=== PATIENT | female | born 1950 | race Caucasian/White ===

== ENCOUNTER 2019-06-02 15:11 | Emergency (ER) | payer MEDICARE ==
--- NOTE | 2019-06-02 16:07 | EDM.PDOC ---
ED HPI GENERAL MEDICAL PROBLEM - General Chief Complaint: Syncope Stated Complaint: [facility] Time Seen by Provider: 06/02/19 15:40 Source of Information: Reports: Patient, EMS History Limitations: Reports: No Limitations - History of Present Illness INITIAL COMMENTS - FREE TEXT/NARRATIVE: 69-year-old female brought in by EMS after a syncopal episode at home. She was down in the basement doing some laundry when she started to feel lightheaded and just generally ill feeling. Nothing specific. No pain or shortness of breath. She thought her "sugar may be low" so she went upstairs to get something to eat. She does not have diabetes but does have a history of gastric bypass. When she got upstairs she was making some toast, continued to feel woozy and lightheaded, and after 2 bites of toast was walking across the kitchen to get something to drink then fainted. She does not remember feeling palpitations, chest pain, headache, nausea or vomiting or other symptoms. She does not remember feeling diaphoretic. Within a few minutes she started waking up when her 5-year-old grandson was trying to get her attention. She has had similar symptoms in the past but never to the point of completely passing out. On EMS arrival she was feeling much better, glucometer was 82. Onset: Sudden Duration: Hour(s): (Within the last hour) Associated Symptoms: Reports: Confusion, Malaise, Syncope. Denies: Chest Pain, Diaphoresis, Fever/Chills Headache Pain Score (Numeric/FACES): 2 - Related Data Allergies Allergy/AdvReac Type Severity Reaction Status Date / Time codeine AdvReac Lightheaded Verified 06/02/19 15:21 ness metformin AdvReac Diarrhea Verified 06/02/19 15:21 Home Meds: Home Meds Acetaminophen [Tylenol] 650 mg PO ASDIRECTED 03/26/14 [History] Aspirin [Adult Low Dose Aspirin EC] 81 mg PO .QOD 03/26/14 [History] Vitamin B Complex 1 tab PO Q48H 03/26/14 [History] atorvaSTATin [Lipitor] 10 mg PO BEDTIME 03/26/14 [History] hydroCHLOROthiazide [Hydrochlorothiazide] 50 mg PO DAILY 03/26/14 [History] Calcium Citrate/Vitamin D3 [Calcium Citrate + D] 1 tab PO BID 12/20/17 [History] Multivitamin [Flintstones] 1 tab PO BID 12/20/17 [History] Potassium Chloride 20 meq PO DAILY 06/02/19 [History] Past Medical History HEENT History: Reports: Impaired Vision, Other (See Below) Other HEENT History: wears glasses Cardiovascular History: Reports: High Cholesterol, Hypertension Gastrointestinal History: Reports: Cholelithiasis, GERD, Hiatal Hernia [employer] History: Reports: Musculoskeletal History: Reports: Other (See Below) Other Musculoskeletal History: hip pain Neurological History: Reports: Migraines Endocrine/Metabolic History: Reports: Diabetes, Type II, Obesity/BMI 30+ Hematologic History: Reports: B12 Deficiency - Infectious Disease History Infectious Disease History: Reports: Chicken Pox - Past Surgical History GI Surgical History: Reports: Appendectomy, Bariatric Procedure, Cholecystectomy , Colonoscopy, EGD Musculoskeletal Surgical History: Reports: Carpal Tunnel Social & Family History - Family History Cardiac: Reports: Bypass Endocrine/Metabolic: Reports: Diabetes, type II - Tobacco Use Smoking Status *Q: Former Smoker Used Tobacco, but Quit: Yes Month/Year Tobacco Last Used: 16 years - Caffeine Use Caffeine Use: Reports: Coffee - Recreational Drug Use Recreational Drug Use: No ED ROS GENERAL - Review of Systems Review Of Systems: See Below Constitutional: Denies: Fever, Chills HEENT: Reports: No Symptoms Respiratory: Denies: Shortness of Breath, Cough Cardiovascular: Reports: Syncope. Denies: Chest Pain, Palpitations GI/Abdominal: Reports: No Symptoms : Reports: No Symptoms Skin: Reports: No Symptoms Neurological: Reports: Dizziness. Denies: Headache Psychiatric: Reports: No Symptoms - Physical Exam Exam: See Below Exam Limited By: No Limitations General Appearance: Alert, No Apparent Distress Eye Exam: Bilateral Eye: Normal Inspection Head Exam: Atraumatic Neck: Supple, Non-Tender Respiratory/Chest: No Respiratory Distress, Lungs Clear Cardiovascular: Regular Rate, Rhythm. No: Extra Beats GI/Abdominal: Soft, Non-Tender Neuro Exam (Abbreviated): Alert, Oriented, No Motor/Sensory Deficits Extremities: Normal Inspection. No: Pedal Edema Psychiatric: Normal Affect, Normal Mood Skin Exam: Warm, Dry Course - Vital Signs Last Recorded V/S: Last Vital Signs Temp 96.8 F L 06/02/19 15:15 Pulse 75 06/02/19 16:10 Resp 16 06/02/19 16:10 BP 120/64 06/02/19 16:10 Pulse Ox 96 06/02/19 16:10 - Orders/Labs/Meds Labs: Laboratory Tests 06/02/19 06/02/19 Range/Units 16:02 16:02 WBC 4.2 L (4.5-11.0) K/uL RBC 4.33 (3.30-5.50) M/uL Hgb 11.7 L (12.0-15.0) g/dL Hct 37.1 (36.0-48.0) % MCV 86 (80-98) fL MCH 27 (27-31) pg MCHC 32 (32-36) % Plt Count 285 (150-400) K/uL Neut % (Auto) 46 (36-66) % Lymph % (Auto) 41 (24-44) % Woodward % (Auto) 8 H (2-6) % Eos % (Auto) 4 (2-4) % Baso % (Auto) 1 (0-1) % Sodium 139 L (140-148) mmol/L Potassium 3.6 (3.6-5.2) mmol/L Chloride 104 (100-108) mmol/L Carbon Dioxide 26 (21-32) mmol/L Anion Gap 12.6 (5.0-14.0) mmol/L BUN 19 H D (7-18) mg/dL Creatinine 0.6 (0.6-1.0) mg/dL Est Cr Clr Drug Dosing 64.46 mL/min Estimated GFR (MDRD) > 60 (>60) Glucose 112 H (74-106) mg/dL Calcium 8.2 L (8.5-10.1) mg/dL Total Bilirubin 0.5 D (0.2-1.0) mg/dL AST 24 (15-37) U/L ALT 40 (12-78) U/L Alkaline Phosphatase 73 (46-116) U/L Troponin I < 0.017 (0.000-0.056) ng/mL Total Protein 5.8 L (6.4-8.2) g/dL Albumin 3.3 L (3.4-5.0) g/dL Globulin 2.5 (2.3-3.5) g/dL Albumin/Globulin Ratio 1.3 (1.2-2.2) - Re-Assessments/Exams Free Text/Narrative Re-Assessment/Exam: 06/03/19 07:31 Patient was kept on cardiac monitoring while in the ER and remained in a sinus rhythm throughout with normal vitals. Symptoms did not recur. CBC and CMP were obtained, glucose is now 112 06/03/19 07:32 White count is 4200, hemoglobin 11.7. BUN is mildly elevated but all other labs are relatively normal. Patient wanted to be discharged versus observation and will return if symptoms are recurring or she develops other concerns. Departure - Departure Time of Disposition: 17:00 Disposition: Home, Self-Care 01 Clinical Impression: Vasovagal syncope - Discharge Information Instructions: Syncope, [id number] Referrals: PCP,None [Primary Care Provider] - Forms: ED Department Discharge Care Plan Goals: Continue current medications, stay hydrated and advance diet and activity as tolerated. Consider rechecking in 2 to 3 days if not improving satisfactorily or return anytime if worsening or concerns. Sepsis Event Note - Evaluation Sepsis Screening Result: No Definite Risk - Focused Exam Date Exam was Performed: 06/03/19 Time Exam was Performed: 07:27
[2019-06-02 16:26] VITALS: BP 120/64; PULSE 75
== END 2019-06-02 17:01 | disposition home or self-care (01) ==
LOC: JP.ED 15:11
DX: R55 Syncope and collapse (principal); I10 Essential (primary) hypertension; E11.9 Type 2 diabetes mellitus without complications; E78.00 Pure hypercholesterolemia, unspecified; E66.9 Obesity, unspecified; Z68.27 Body mass index [BMI] 27.0-27.9, adult; Z87.891 Personal history of nicotine dependence; Z88.5 Allergy status to narcotic agent; Z88.8 Allergy status to other drugs, medicaments and biological substances; Z79.82 Long term (current) use of aspirin; Z79.899 Other long term (current) drug therapy
CPT/HCPCS: 36415; 80053; 84484; 85025; 99283; 99284

== ENCOUNTER 2021-11-17 06:00 | Inpatient (IN) | payer MEDICARE ==
[2021-11-17] MEDS ORDERED: Acetaminophen 500 MG Tab PO ONE (08:47)
[2021-11-17] MEDS ORDERED: Dextrose 5%-Lactated Ringers 1,000 ML IV SCH (09:10)
[2021-11-17] MEDS ORDERED: Neostigmine Methylsulfate 1 MG/ML 5 ML Syringe ONE (09:45)
[2021-11-17] MEDS ORDERED: Rocuronium 50 MG/5 ML Vial ONE (09:45)
[2021-11-17] MEDS ORDERED: Propofol 200 MG/20 ML SDV ONE (09:45)
[2021-11-17] MEDS ORDERED: Dexamethasone 4 MG/ML SDV ONE (09:45)
[2021-11-17] MEDS ORDERED: Glycopyrrolate 0.2 MG/ML 5 ML MDV ONE (09:45)
[2021-11-17] MEDS ORDERED: Ondansetron 4 MG/2 ML SDV ONE (09:45)
[2021-11-17] MEDS ORDERED: ceFAZolin 2 GM in Premix Bag 1 BAG IV ONE (11:15)
[2021-11-17] MEDS ORDERED: ceFAZolin 2 GM in Sodium Chloride 0.9% 50 ML IV ONE ×2 (11:15→18:30)
[2021-11-17] MEDS ORDERED: Mupirocin Oint 22 GM Tube ONE (11:55)
[2021-11-17] MEDS ORDERED: HYDROmorphone/Normal Saline 6 MG/30 ML PCA Vial ONE (11:55)
[2021-11-17] MEDS ORDERED: Ketoconazole 2% Crm 30 GM Tube ONE (11:55)
[2021-11-17] MEDS ORDERED: Meropenem 500 MG SDV ONE (11:55)
[2021-11-17] MEDS ORDERED: Lactated Ringers 1,000 ML IV ONE (12:40)
[2021-11-17] MEDS ORDERED: Dextrose 5%-Lactated Ringers 1,000 ML IV ONE (16:48)
[2021-11-18] MEDS ORDERED: Dextrose 5%-Lactated Ringers 1,000 ML IV ONE ×3 (01:00→20:35)
[2021-11-18] MEDS ORDERED: ceFAZolin 2 GM in Sodium Chloride 0.9% 50 ML IV ONE ×3 (02:30→18:30)
[2021-11-18] MEDS ORDERED: Hydrochlorothiazide 25 MG Tab PO ONE (09:00)
[2021-11-18] MEDS ORDERED: Magnesium Oxide 400 MG Tab PO ONE (09:00)
[2021-11-18] MEDS ORDERED: Potassium Chloride 20 MEQ Tab.ER PO ONE (09:00)
[2021-11-19] MEDS ORDERED: ceFAZolin 2 GM in Sodium Chloride 0.9% 50 ML IV ONE (02:30)
[2021-11-19] MEDS ORDERED: Hydrochlorothiazide 25 MG Tab ONE (09:00)
[2021-11-19] MEDS ORDERED: Potassium Chloride 20 MEQ Tab.ER ONE (09:00)
[2021-12-14 01:53] LABS: 25-HYDROXY, VITAMIN D SEE SEP RPT; 25-HYDROXY, VITAMIN D-2 SEE SEP RPT
== END 2021-11-19 11:15 | disposition home or self-care (01) | DRG 572 ==
LOC: JP.ZCENSUS 06:00
PROVIDERS: ADMIT Surgery; ATTEND Surgery
PROC: 0JB80ZZ Excision of Abdomen Subcutaneous Tissue and Fascia, Open Approach (ICD-10-PCS; principal; 2021-11-17)
PROC: 0WQF0ZZ Repair Abdominal Wall, Open Approach (ICD-10-PCS; 2021-11-17)
DX: M79.3 Panniculitis, unspecified (principal); K43.2 Incisional hernia without obstruction or gangrene; E53.8 Deficiency of other specified B group vitamins; F17.210 Nicotine dependence, cigarettes, uncomplicated; E11.9 Type 2 diabetes mellitus without complications; K44.9 Diaphragmatic hernia without obstruction or gangrene; E78.5 Hyperlipidemia, unspecified; E78.1 Pure hyperglyceridemia; K21.9 Gastro-esophageal reflux disease without esophagitis; E78.00 Pure hypercholesterolemia, unspecified; G43.909 Migraine, unspecified, not intractable, without status migrainosus; H52.13 Myopia, bilateral; E66.01 Morbid (severe) obesity due to excess calories; Z90.49 Acquired absence of other specified parts of digestive tract; Z98.84 Bariatric surgery status; Z79.899 Other long term (current) drug therapy; Z79.82 Long term (current) use of aspirin; Z88.5 Allergy status to narcotic agent; Z88.8 Allergy status to other drugs, medicaments and biological substances; I10 Essential (primary) hypertension; Z68.33 Body mass index [BMI] 33.0-33.9, adult
CPT/HCPCS: 36415; 82306; 82525; 82607; 82728; 82746; 83735; 84425; 84590; 84630; 88302; 94762; A9270-GY; J0690; J1100; J1170; J2020; J2185; J2405; J2704; J2710; J3010; J3490; J7120; J7121

== ENCOUNTER 2021-12-28 22:39 | Emergency (ER) | payer MEDICARE ==
[2021-12-28 23:06] VITALS: BP 139/51; PULSE 80
== END 2021-12-28 23:53 | disposition home or self-care (01) ==
LOC: JP.ED 22:39
DX: T85.698A Other mechanical complication of other specified internal prosthetic devices, implants and grafts, initial encounter (principal); E78.00 Pure hypercholesterolemia, unspecified; I10 Essential (primary) hypertension; E11.9 Type 2 diabetes mellitus without complications; E66.9 Obesity, unspecified; Z68.30 Body mass index [BMI] 30.0-30.9, adult; Z88.5 Allergy status to narcotic agent; Z88.8 Allergy status to other drugs, medicaments and biological substances; Z79.82 Long term (current) use of aspirin
CPT/HCPCS: 99282